=== PATIENT | male | born 1950 | race Caucasian/White ===

== ENCOUNTER → 2016-09-08 | Outpatient (REF) | payer MEDICARE ==
[2016-09-08 11:21] LABS: BASOPHILS % (AUTO) 0 % (0-2); CLARITY,URINE Clear; EOSINOPHILS # (AUTO) 0.1 10^3uL; EOSINOPHILS % (AUTO) 1 % (0-4); GLUCOSE, URINE (UA) Negative (Negative); LEUKOCYTE ESTERASE ,URINE Negative (Negative); LYMPHOCYTES # (AUTO) 1.2 X10^3; MEAN CORPUSCULAR HGB CONC 34.6 g/dL (31.0-37.0); MEAN CORPUSCULAR VOLUME 93 FL (80-100); MEAN PLATELET VOLUME 9.8 FL (6.0-9.5); MONOCYTES # (AUTO) 0.5 X10^3; MONOCYTES % (AUTO) 9 % (3-11); NEUTROPHILS # (AUTO) 3.8 X10^3; NEUTROPHILS % (AUTO) 68 % (51-67); PLATELET COUNT 171 10^3uL (150-450); UROBILINOGEN,URINE 0.2 mg/dL (0.2-1.0); WHITE BLOOD COUNT 5.58 10^3uL (4.0-11.0)
[2016-09-08 11:33] LABS: MEAN CORPUSCULAR HEMOGLOBIN 32.1 PG (26.0-34.0)
[2016-09-08 11:34] LABS: BILIRUBIN,URINE 1+ (Negative); COLOR,URINE Dark Yellow
[2016-09-08 11:52] LABS: ALBUMIN 3.9 g/dL (3.4-5.0); ANION GAP 13.6 MEQ/L (3-15); CALCULATED IONIZED CALCIUM 3.7 mg/dL (3.8-4.6); TOTAL PROTEIN 7.3 g/dL (6.4-8.5)
== END ==
LOC: LAB 10:57
PROVIDERS: ATTEND Family Medicine
DX: E03.8 Other specified hypothyroidism (principal); C73 Malignant neoplasm of thyroid gland; R31.9 Hematuria, unspecified; C64.2 Malignant neoplasm of left kidney, except renal pelvis
CPT/HCPCS: 80053; 81003; 84432; 84439; 84443; 85025; 86800

== ENCOUNTER → 2016-09-12 | Outpatient (CLI) | payer MEDICARE | LOC: RAD 08:57 | PROVIDERS: ATTEND Family Medicine | DX: C73 Malignant neoplasm of thyroid gland (principal); E03.8 Other specified hypothyroidism; R31.9 Hematuria, unspecified; C64.2 Malignant neoplasm of left kidney, except renal pelvis; Z85.51 Personal history of malignant neoplasm of bladder; K57.90 Diverticulosis of intestine, part unspecified, without perforation or abscess without bleeding | CPT/HCPCS: 74178; 76536; Q9967 ==